=== PATIENT | male | born 1980 | race Caucasian/White ===

== ENCOUNTER 2020-07-11 22:49 | Emergency (ER) | payer MEDICAID, SELFPAY ==
[2020-07-11 22:54] VITALS: BP 98/62; PULSE 90; RESP 16; TEMP 36.5; O2SAT 97; BMI 29.5
[2020-07-11 23:09] VITALS: BP 101/72; PULSE 80; RESP 16; O2SAT 96
--- NOTE | 2020-07-11 23:09 | XR_ITS ---
WS: [id number] EXAM: RIGHT ANKLE: 3 VIEWS DATE OF EXAMINATION: 07/11/2020, 2318 hours COMPARISON: None. HISTORY: Patient is 40 years old with ankle trauma with pain and deformity. Stepped on by a bull. FINDINGS: There are findings of a trimalleolar fracture of the ankle. On the AP imaging the talus and posterior malleolar fracture is offset in relation to the main tibial plafond by about 50% laterally. On later al imaging there is about 90% dislocation of the talus posteriorly in relation to the tibial plafond. [place] C fibular fracture seen with almost 100% displacement on AP imaging. A lateral imaging is abou t 40 degrees of angulation deformity. The posterior medial malleolar fracture fragment has been displ aced dorsally with about 1.5 cm of superior migration above the articular surface. Post reduction alonzo ging recommended. XR/XR ankle RT 2V [id number] IMPRESSION: Trimalleolar fracture with near 100% dislocation of the right ankle as ngozi hutton
--- NOTE | 2020-07-11 23:10 | W.ED.EXTPRO ---
Documented by User: ASHLY Lisa 07/11/20 23:11 HPI - Extremity Problem General: Chief complaint: Extremity Injury, Lower Stated complaint: right leg injury Time Seen by Provider: 07/11/20 23:06 History of Present Illness: HPI Narrative: And says he was stepped on by a bull earlier this evening on the inner aspect ankle he felt a snap and says his ankle is broke. Said he was kicked but he says his size not hurting not bother him right now on his right side does have a splint in place on right lower extremity MD Complaint: extremity pain and extremity swelling Onset (ago): minute(s) Pain Consistency: constant Location: right and lower extremity Severity scale (1-10): 4 Quality: aching Associated symptoms: Reports no associated symptoms; Deny chest pain, fever(s) or rash Review of Systems Const: Denies: fever(s), chills or body aches Eyes: Denies: change in vision or blurry vision ENMT: Denies: throat pain or nasal congestion Card: Denies: chest pain or dyspnea on exertion Resp: Denies: dyspnea, productive cough or non-productive cough GI: Denies: abdominal pain, nausea or vomiting : Denies: difficulty urinating Musc: Reports: extremity pain and extremity swelling Skin/Breast: Denies: rash Neuro: Denies: headache(s) Psych: Denies: anxiety or depression Chris/Lymph: Denies: easy bruising Physical Exam Const: COMMON NORMALS: no acute distress, average body habitus and patient oriented x3 HENMT: COMMON NORMALS: normocephalic HEAD & SCALP: normal to inspection and normocephalic FACE & SINUS: normal facial exam Eye: COMMON NORMALS: conjunctivae normal GENERAL EYE: appearance normal, both eyes and all related structures CONJUNCTIVA: Yes conjunctivae normal Neck/C-Spine: COMMON NORMALS: no JVD Chest: COMMONS NORMALS: normal inspection of the chest Resp: COMMON NORMALS: normal respiratory effort and clear to auscultation bilaterally AUSCULTATION: clear to auscultation bilaterally Cardio: COMMON NORMALS: no JVD, regular rate and regular rhythm RATE: regular rate RHYTHM: regular rhythm GI: COMMON NORMALS: Normal to inspection, nondistended, normoactive bowel sounds present Extremity: COMMON NORMALS: normal to inspection and full ROM NARRATIVE EXTREMITY EXAM: Has good neurovascular status distal of the injury splint in place able to move toes without any difficulty Neuro: COMMON NORMALS: patient oriented x3 Course Vital Signs: Vital signs: Vital Signs Temperature 97.7 F 07/11/20 22:54 Pulse Rate 97 07/12/20 00:15 Respiratory Rate 18 07/12/20 00:22 Blood Pressure 112/87 07/12/20 00:15 Pulse Oximetry 97 07/12/20 00:22 Discharge Plan Discharge Patient Disposition: Home Clinical Impression: Ankle fracture Qualifiers: Encounter type: initial encounter Fracture type: closed Laterality: right Qualified Code(s): S82.891A - Other fracture of right lower leg, initial encounter for closed fracture Condition: Stable Prescriptions: New Percocet 7.5-325 mg tablet 1 tab PO Q6H PRN (Reason: pain) Qty: 24 RF: 0 No Action alprazolam 3 mg PO TID RF: 0 Discharge Orders: Discharge Order (Routine); Ordered 07/12/20 Ordered By: Baldomero Gross Referrals: Ramirez Plummer MD [Physician] - 1-3 days Evans Scott Jr, MD [Primary Care Provider] - Discharge Diet: Advance as tolerated Discharge Activity: Limit activity as instructed Patient Instructions: Ankle Fracture (ED) Activity Restrictions/Additional Instructions: Do not bear weight. Use crutches. Stay in splint until you are evaluated by orthopedics. Your ankle fracture is unstable, and will displace out of the splint. Call the orthopedic department at the number above Monday morning for an appointment this week regarding your fracture. Surgical fixation will be necessary. Return for intense worsening pain despite treatment, pain to the calf, other concerning symptoms. Coding Level of Care Code ED Racecourse Barrier Attendant for Chg Fwd Exam Comprehensive Documented by User: Baldomero Gross DO 07/12/20 00:44 HPI - Extremity Problem General: Chief complaint: Extremity Injury, Lower Stated complaint: right leg injury Time Seen by Provider: 07/11/20 23:06 Procedures Orthopedic Fracture Reduction Fracture #1: Side: right Fracture Reduction Location: tibia and fibula Analgesia: procedural sedation Technique: direct manipulation and traction/counter-traction Post Reduction X-rays Demonstrate: acceptable reduction Post-reduction neuro exam: intact Post-reduction vascular exam: intact Splint Applied: Yes Patient Tolerated Procedure: well and no complications Procedural Sedation Indication: fracture/dislocation reduction ASA Class: I Preparation: cardiac catheterization technologist applied, pulse oximeter, capnometry used, supplemental O2 applied, suction/airway equipment at bedside and IV secured Midazolam dose (mg): 2 IV Etomidate dose (mg): 20 Patient Tolerated Procedure: well and no complications Course Vital Signs: Vital signs: Vital Signs Temperature 97.7 F 07/11/20 22:54 Pulse Rate 97 07/12/20 00:15 Respiratory Rate 18 07/12/20 00:22 Blood Pressure 112/87 07/12/20 00:15 Pulse Oximetry 97 07/12/20 00:22 MDM - Extremity (Nontraumatic) MDM Narrative: Medical decision making narrative: This patient was originally seen by ASHLY Contreras. I agree with his history, exam, and work-up. This patient has medial and posterior malleolar fractures, with a distal third fibula fracture. It is dislocated at the tibiotalar joint. The patient was sedated, fracture was reduced to acceptable position. Arnold and posterior splints were placed. He tolerated the procedure well without any complication. He will follow-up with orthopedics. Discharge Plan Discharge Patient Disposition: Home Clinical Impression: Ankle fracture Qualifiers: Encounter type: initial encounter Fracture type: closed Laterality: right Qualified Code(s): S82.891A - Other fracture of right lower leg, initial encounter for closed fracture Condition: Stable Prescriptions: New Percocet 7.5-325 mg tablet 1 tab PO Q6H PRN (Reason: pain) Qty: 24 RF: 0 No Action alprazolam 3 mg PO TID RF: 0 Discharge Orders: Discharge Order (Routine); Ordered 07/12/20 Ordered By: Baldomero Gross Referrals: Ramirez Plummer MD [Physician] - 1-3 days Evans Scott Jr, MD [Primary Care Provider] - Discharge Diet: Advance as tolerated Discharge Activity: Limit activity as instructed Patient Instructions: Ankle Fracture (ED) Activity Restrictions/Additional Instructions: Do not bear weight. Use crutches. Stay in splint until you are evaluated by orthopedics. Your ankle fracture is unstable, and will displace out of the splint. Call the orthopedic department at the number above Monday morning for an appointment this week regarding your fracture. Surgical fixation will be necessary. Return for intense worsening pain despite treatment, pain to the calf, other concerning symptoms. Coding Level of Care Code ED Racecourse Barrier Attendant for Erin Cook Exam Comprehensive
--- NOTE | 2020-07-11 23:38 | XR_ITS ---
WS: [id number] EXAM: RIGHT ANKLE: 2 VIEWS DATE OF EXAMINATION: 07/12/2020, 0001 hours COMPARISON: Right ankle examination from one day prior HISTORY: Patient is 40 years old with right ankle fracture reduction. FINDINGS: Since the earlier examination the trimalleolar fracture with essentially almost complete dislocation has been reduced. The talus is now located below the tibial plafond. The Blankens[place] C fibular fracture has been reduced on AP imaging. On lateral imaging about 50% step-off of the distal fibula dorsally in r elation to the proximal shaft. Medial and posterior malleolar fracture fragments are not extensively displaced. Overlying splint material has been applied. XR/XR ankle RT 2V [id number] IMPRESSION: Reduced right ankle fracture/dislocation. Fairly normal alignment. Orthopedic s urgeon referral recommended.
[2020-07-11 23:47] VITALS: BP 117/73; PULSE 101; RESP 20; O2SAT 96
[2020-07-11] MEDS: midazolam 1 mg/mL INJ 2 mL 2 MG IVP (23:50)
[2020-07-12 00:05] VITALS: BP 108/67; PULSE 99; RESP 16; O2SAT 99
[2020-07-12 00:10] VITALS: BP 107/70; PULSE 96; RESP 16; O2SAT 99
[2020-07-12 00:13] VITALS: BP 107/70; BP 117/73; PULSE 88; PULSE 96; RESP 16; RESP 19; O2SAT 96; O2SAT 99
[2020-07-12 00:15] VITALS: BP 112/87; PULSE 97; RESP 16; O2SAT 99
[2020-07-12] MEDS: ondansetron 2 mg/ML SDV 2 mL 4 MG IVP (00:20)
[2020-07-12 00:22] VITALS: RESP 18; O2SAT 97
[2020-07-12] MEDS: HYDROmorphone 1 mg/mL INJ 1 mL IVP (00:22)
--- NOTE | 2020-07-12 00:23 | PC.NURSE ---
pre procedure patient was hooked up to monitor, ambu bag ready, suction ready, splint cart ready crash cart outside RT at bedside, nurse at bedside, doc at bedside, procedure start 0000, drugs given, VS stable, oxygen applied during procedure, ankle reduced and splint patient procedure end 0015 will continue to be monitor
--- NOTE | 2020-07-12 00:59 | PC.NURSE ---
patient had returned to normal pre procedure status on discharge left with friends
[2020-07-12 01:00] VITALS: BP 124/76; PULSE 91; RESP 18
--- NOTE | 2020-07-14 09:02 | DCPLANNER ---
employment agency manager had message to schedule a follow up appointment for patient with ortho. employment agency manager called the ortho clinic, spoke with Pat, gave clinic patients information. employment agency manager was told that patients information would be printed and reviewed. Clinic will call patient with appointment information.
--- NOTE | 2020-07-16 16:50 | DCPLANNER ---
Patient had a follow up appointment scheduled for 07.14.20 with ortho - patient did attend the appointment.
== END 2020-07-12 01:02 | disposition home or self-care (01) ==
PROVIDERS: Emergency Provider Emergency Medicine; PCP Family Medicine
DX: S82.851A Displaced trimalleolar fracture of right lower leg, initial encounter for closed fracture (principal); V80.919A Animal-rider injured in unspecified transport accident, initial encounter
CPT/HCPCS: 12345; 73600; 73610; 96374; 96375; 99283; 99284; E0114; J1170; J2250; J2405; J3490

== ENCOUNTER 2020-07-16 10:40 | Day surgery (SDC) | payer MEDICAID, SELFPAY ==
[2020-07-15 08:43] VITALS: BMI 30.8
[2020-07-16] VITALS (9 sets, daily range): BP systolic 97–138; BP diastolic 66–99; PULSE 80–117; RESP 18–22; TEMP 36.2–36.4; O2SAT 91–96
--- NOTE | 2020-07-16 | SCC_ITS ---
Procedure Done: Open reduction and internal fixation right trimalleolar ankle fracture 66.2 seconds of fluoroscopic guidance, for a cumulative dose of 1.82 mGy, was provided to Dr. Plummer by the radiology department. C-arm images of the RIGHT ankle were saved for the patient's permanent record. [facility]
[2020-07-16] MEDS: sodium chloride 0.9% 1,000 ML 30 ML IV (11:11)
--- NOTE | 2020-07-16 11:20 | ANES.PREANE2 ---
Pre-Anesthetic Assessment Pre-Anesthetic Assessment: Height/Weight: Height 1.88 m Weight 108.862 kg Temp Pulse Resp BP Pulse Ox 97.3 F L 117 H 18 135/99 96 07/16/20 10:59 07/16/20 10:59 07/16/20 10:59 07/16/20 10:59 07/16/20 10:59 Preop Diagnosis: Right trimalleolar ankle from Proposed Procedure: Operation Date: 07/16/20 12:40 Proposed Procedures p ORIF Ankle 37130 S82.851A(Right) - Ramirez Plummer MD Familial anesthetic complications: None Was Beta Elo taken within 24 hours: N/A Last intake: Intake Last Liquid Date 07/15/20 Last Liquid Time 23:00 Last Solid Date 07/15/20 Social: Social History: Alcohol (1-2 beers a day) and Tobacco Exam: Pre-Anes Outpt Exam: alert, oriented x 3, clear to auscultation bilaterally and regular rate & rhythm Airway: Cervical ROM: WNL MP: 3 Dentition: Full Neuropsych: Neuropsych: Seizure (1 4 years ago after he'd been awake for 4 days) Anesthetic Plan: ASA status: 1 Anesthesia: Regional (specify below) Risk of > 500 ml blood loss (7ml/kg in children): No Meds/Allergies Current Medications: Current Medications Generic Name Dose Route Start Last Admin Trade Name Freq PRN Reason Stop Dose Admin Sodium Chloride 1,000 mls @ 30 ml s/hr 07/16/20 08:45 07/16/20 11:11 Sodium Chloride 0.9% IV 07/17/20 08:44 30 mls/hr .Q24H QUINTON Administration Data Anesthesia Cardiac Studies: No Data to Display
--- NOTE | 2020-07-16 11:43 | ANES.PROC ---
Anesthesia Procedures Procedure/Date: 07/16/20 Nerve Block ^: Nerve Block 1: Main Anesthesia: general anesthesia Time Out Performed: Yes Consent: requested by attending/covering physician, from patient, risks and benefits reviewed and patient agrees to proceed Nerve block location: popliteal (R) Anesthesia monitors applied: pulse oximetry and oxygen Nerve block position: semi sitting Anesthetic Used: ropivicaine 0.5% and with decadron (4) Amount of anesthesia used (mL): 30 Ultrasound used to: recognize landmarks Interscalene/Femoral BLK: 4 stimuplex 21 g needle used for position and inplane approach and visualize local anesthetic spread Injection: neg aspiration of heme Patient Tolerated Procedure: well Complications: none
[2020-07-16] MEDS: midazolam 1 mg/mL INJ 5 ML 5 MG IVP (11:52)
--- NOTE | 2020-07-16 13:08 | W.PM.OPSUD ---
Surgery/Procedure H&P Update DATE OF PROCEDURE: July 16, 2020 DATE H&P PERFORMED: 07/14/20 PREOP DIAGNOSIS: Right trimalleolar ankle from PLANNED PROCEDURE: Operation Date: 07/16/20 12:40 Proposed Procedures p ORIF Ankle 31533 S82.851A(Right) - Ramirez Plummer MD
[2020-07-16] MEDS: vancomycin 1,000 MG in sodium chloride 0.9% 250 ML 250 MG IV (13:50)
--- NOTE | 2020-07-16 16:36 | XR_ITS ---
WS: [id number] Right ankle, 3 C-arm fluoroscopy views, 07/16/2020 Clinical Data: OR PICS Comparison: Right ankle, 07/11/2020. Findings: The trimalleolar fracture has been reduced associated multiple orthopedic screws. The ankle mortise i s in good alignment. There is a lateral plate of the distal fibula fixed with at least 5 orthopedic s crews to reduce the distal fibular fracture. XR/XR ankle RT min 3V* [id number] Impression: Internal fixation of distal right fibular fracture and fracture of the medial a nd posterior malleolus of the right tibia.
--- NOTE | 2020-07-16 16:45 | SUR.PHASEI ---
7995 PATIENT TO PACU FROM OR. RR EVEN AND UNLABORED. DRESSING TO RIGHT FOOT WITH WALKING BOOT IN PLACE. ORAL AIRWAY IN PLACE. SPO2 93% ON SIMPLE MASK AT 8L.
--- NOTE | 2020-07-16 16:53 | PM.OP ---
Operative Report Date of procedure: July 16, 2020 Pre-op Diagnosis: Right trimalleolar ankle from Post-op diagnosis: same Post-op Findings: Same Procedure Done: Open reduction and internal fixation right trimalleolar ankle fracture Implants: [place] 7 hole compression plate with 7 bicortical screws, 4 cannulated 4.0 mm biker screws with 1 washer Pathology: none sent Surgeon: Ramirez Plummer Anesthesia: General and Nerve Block (Popliteal nerve block) Estimated blood loss (mL): 10 Tourniquet time (min): 58 Complications: None Findings: The patient had a trimalleolar ankle fracture consisting of a high fibular fracture, a large posterior malleolar fracture involving approximately 30% of the articular surface and a posterior medial malleolar fracture Condition: stable Disposition: PACU Procedure: The patient was taken to the operating room after a popliteal block was provided by anesthesia. He is prepped and draped in the supine position with a bump under the right hip. Initial attention was paid to the fibula. 6 cm long incision was made centered over the fracture and dissection carried down to the fibula reflecting the popliteal musculature anteriorly the fibular fracture was identified and brought out to length with 2 lobster claw clamps. A 7 hole pression plate was applied with 4 screws in the proximal fragment and 3 distal. Attention was then paid to the posterior malleolar fragment. With the fibula to length and the ankle dorsiflexed the posterior malleolus was well aligned. A small skin incision was made over the anterior ankle and dissection carried down bluntly with a hemostat. At guidepin was passed from the anterior tibia posterior to the malleolar fragment. The cannulated drill bit was passed over the pin and a 4.0 cannulated screw with washer placed compressing the inferior posterior malleolar fragment. A second screw without a washer was placed proximally controlling the proximal fragment and rotation. Next the medial malleolar fragment was identified. It appeared to be a posterior shearing fragment involving the posterior medial malleolus and posterior medial tibia. Fluoroscopy was used again to pass a guidepin from the inferior posterior medial fragment across the fracture into the tibia. Then the cannulated drill bit was passed over the pin and a 4.0 cannulated screw placed compressing the inferior posterior malleolus. Second screw was passed in identical fashion compressing the superior portion of the fracture. All wounds were irrigated with saline. Deep tissues over the lateral incision were closed with 0 Vicryl and the skin was closed with skin eber. The cannulated screw portals were closed with interrupted 3-0 Prolene. Wounds were covered with Xeroflo gauze 4 x 4's and web roll and a compressive Manuel wrap. The patient was placed in a postop boot. He was extubated and taken to the recovery room in stable condition.
--- NOTE | 2020-07-16 17:03 | SUR.PHASEI ---
1702 ORAL AIRWAY REMOVED AT THIS TIME. SPO2 93% ON RA.
--- NOTE | 2020-07-16 17:16 | SUR.PHASEI ---
1712 PATIENT TO OPS. A/OX3. NO DISTRESS. DRESSING AND WALKING BOOT IN PLACE TO RIGHT FOOT.
== END 2020-07-16 17:50 | disposition home or self-care (01) ==
PROVIDERS: PCP Family Medicine; Visit Provider Orthopaedic Surgery
PROC: (CPT 20690; principal; 2020-07-16 12:40)
DX: S82.851A Displaced trimalleolar fracture of right lower leg, initial encounter for closed fracture (principal); Z88.0 Allergy status to penicillin; W55.29XA Other contact with cow, initial encounter
CPT/HCPCS: 20690; 27822; 12345; 73610; 76000; 96374; C1713; J1100; J1580; J2250; J2405; J2704; J2795; J3010; J3370; J7030; J7050

== ENCOUNTER → 2020-08-18 15:21 | Outpatient (BNVA) | payer MEDICAID, SELFPAY | PROVIDERS: PCP Family Medicine; Visit Provider Orthopaedic Surgery | DX: Z48.89 Encounter for other specified surgical aftercare (principal) | CPT/HCPCS: 73610 ==

== ENCOUNTER → 2020-09-15 14:20 | Outpatient (BNVA) | payer MEDICAID, SELFPAY | PROVIDERS: PCP Family Medicine; Visit Provider Orthopaedic Surgery | DX: Z48.89 Encounter for other specified surgical aftercare (principal) | CPT/HCPCS: 73610 ==

== ENCOUNTER 2022-04-17 01:32 | Emergency (ER) | payer OTHER, BC, MEDICAID, SELFPAY ==
[2022-04-17 01:42] VITALS: BP 162/109; PULSE 88; RESP 20; TEMP 36.8; O2SAT 99; BMI 28.0
[2022-04-17 01:48] VITALS: BP 162/109; PULSE 95; RESP 16; O2SAT 16; BMI 28.2
--- NOTE | 2022-04-17 02:13 | W.ED.ALCOHOL ---
HPI - Alcohol General: Chief Complaint: General Medical Stated Complaint: ETOH Time Seen by Provider: 04/17/22 02:02 Source: patient and EMS History of Present Illness: 42-year-old male brought in by law enforcement and EMS. He is intoxicated publicly. He has no complaints. He is not suicidal. He does not wish to harm anyone else. He has had significant life stressors recently. MD complaint: alcohol intoxication Previous visits for alcohol intoxication: No Recent trauma: No Associated symptoms: Deny abdominal pain, nausea, seizure-like activity, suicidal ideation or vomiting Treatments prior to arrival: none Review of Systems General: Reports: ROS unobtainable due to medical condition Const: Denies: fever(s) Card: Denies: chest pain Resp: Denies: dyspnea GI: Denies: abdominal pain, nausea or vomiting Neuro: Denies: seizure-like activity Psych: Denies: suicidal ideation Physical Exam Const: GENERAL APPEARANCE: cooperative; not frail appearing ORIENTATION/CONSCIOUSNESS: Yes awake, Yes oriented to person and Yes oriented to place; not oriented to time HENMT: COMMON NORMALS: normocephalic, atraumatic and Normal external nose present HEAD & SCALP: normocephalic and atraumatic FACE & SINUS: normal facial exam NOSE: Normal external nose present Eye: COMMON NORMALS: Equal, round and reactive pupils present and EOMs intact bilaterally PUPIL: Yes Equal, round and reactive pupils present Neck/C-Spine: COMMON NORMALS: full ROM GENERAL: Yes trachea midline Chest: COMMONS NORMALS: normal inspection of the chest CHEST: Yes Symmetrical chest wall rise Resp: COMMON NORMALS: normal respiratory effort, No use of accessory muscles and clear to auscultation bilaterally AUSCULTATION: clear to auscultation bilaterally Cardio: COMMON NORMALS: regular rate and regular rhythm RATE: regular rate RHYTHM: regular rhythm GI: INSPECTION: Yes normal to inspection Extremity: COMMON NORMALS: normal to inspection and no pedal edema Neuro: SHELLEY COMA SCALE: document GCS findings Shelley coma scale eye opening: Spontaneous Shelley coma scale verbal response: Confused Shelley coma scale motor response: Obey commands [place] coma scale total score: 14 SENSORIUM/ORIENTATION: Yes oriented to person, Yes oriented to place and No oriented to time CRANIAL NERVES: Yes CN normal except as noted Psych: COMMON NORMALS: denies homicidal ideation and denies suicidal ideation APPEARANCE: Yes grossly normal ATTITUDE: Yes calm SPEECH: Yes slurred MOOD & AFFECT: Yes depressed mood THOUGHT CONTENT: No Suicidality present and No Homicidality present Course Vital Signs: Vital signs: Vital Signs Temperature 98.2 F 04/17/22 01:42 Pulse Rate 86 04/17/22 05:03 Respiratory Rate 16 04/17/22 05:03 Blood Pressure 149/97 04/17/22 05:03 Pulse Oximetry 99 04/17/22 05:03 MDM - Alcohol Medical Decision Making 42-year-old intoxicated male. He is not suicidal. He is made no threats to harm anyone including himself. He has been cooperative. He is not psychotic. He is not appear to have any medical conditions. He is able to ambulate in the ER without difficulty or help. He will be allowed discharge to the custody of a responsible sober adult. Discharge Plan Discharge Patient Disposition: Home Clinical Impression: Alcohol intoxication Condition: Stable Prescriptions: Discontinued hydrocodone-acetaminophen [[place]] 7.5-325 mg tablet 1 tab PO Q4H PRN (Reason: pain) 7 Days Qty: 30 0RF hydrocodone-acetaminophen [[place]] 5-325 mg tablet 1 tab PO Q4H PRN (Reason: pain) 7 Days Qty: 30 0RF hydrocodone-acetaminophen [[place]] 7.5-325 mg tablet 1 tab PO Q4H PRN (Reason: pain) 7 Days Qty: 30 0RF tramadol 50 mg tablet 50 mg PO Q6H PRN (Reason: pain) Qty: 30 0RF alprazolam 2 mg tablet 2 mg PO PRN PRN (Reason: Anxiety) 0RF oxycodone 5 mg tablet 5 mg PO Q4H PRN (Reason: pain) Qty: 40 0RF Discharge Orders: Discharge ED (Routine); Ordered 04/17/22 Ordered By: Baldomero Gross Referrals: Evans Scott Jr, MD [Primary Care Provider] - 4-7 days Patient Instructions: Alcohol Intoxication (ED) Activity Restrictions/Additional Instructions: Return for any thoughts or wishes to harm your self or anyone else. Return for any other concerns. follow-up with your doctor. Coding Level of Care Code ED Rn Acute for Erin Fwd Exam Comprehensive
[2022-04-17 05:03] VITALS: BP 149/97; PULSE 86; RESP 16; O2SAT 99
[2022-04-17] MEDS: nicotine 21 mg Patch 1 PATCH TRANSDERMA (05:30)
[2022-04-17 06:13] VITALS: BP 154/96; PULSE 74; O2SAT 98
== END 2022-04-17 06:17 | disposition home or self-care (01) ==
PROVIDERS: Emergency Provider Emergency Medicine; PCP Family Medicine
DX: F10.129 Alcohol abuse with intoxication, unspecified (principal)
CPT/HCPCS: 99283